=== PATIENT | male | born 1995 | race African-American/Black ===

== ENCOUNTER 2020-02-04 18:50 | Emergency (ER) | payer OTHER ==
[2020-02-04 19:15] VITALS: BP 123/79
--- NOTE | 2020-02-04 19:38 | ER Document Report ---
ED GI/ - General Chief Complaint: STD Exposure Stated Complaint: STD CHECK Time Seen by Provider: 02/04/20 19:36 Mode of Arrival: Ambulatory Information source: Patient Notes: 24-year-old male presented to ED for complaint of having sexual contact with a female who states that she was positive for chlamydia. He states he is not having any symptoms. He states he is supposed to go to [facility] tomorrow for basic training. He states he needs to get tested and treated tonight before he leaves. He is alert oriented respirations regular nonlabored speaking in full sentences. - HPI Patient complains to provider of: Other - No pain no discharge no discomfort states he has been in contact with somebody who had chlamydia Onset: Last week Quality of pain: No pain Severity in ED: None Pain Level: Denies Sexual history: Unprotected intercourse Associated symptoms: None Exacerbated by: Denies Relieved by: Denies Similar symptoms previously: No Recently seen / treated by doctor: No - Related Data Allergies/Adverse Reactions: No Known Allergies Allergy (Unverified 02/04/20 19:26) Past Medical History - General Information source: Patient - Social History Smoking Status: Former Smoker Frequency of alcohol use: None Drug Abuse: None Occupation: Active duty Family History: Reviewed & Not Pertinent Patient has suicidal ideation: No Patient has homicidal ideation: No - Past Medical History Cardiac Medical History: Reports: None Pulmonary Medical History: Reports: None EENT Medical History: Reports: None Neurological Medical History: Reports: None Endocrine Medical History: Reports: None Renal/ Medical History: Reports: None Malignancy Medical History: Reports None GI Medical History: Reports: None Musculoskeletal Medical History: Reports None Skin Medical History: Reports None Psychiatric Medical History: Reports: None Traumatic Medical History: Reports: None Infectious Medical History: Reports: None Surgical Hx: Negative Past Surgical History: Reports: None - Immunizations Immunizations up to date: Yes Hx Diphtheria, Pertussis, Tetanus Vaccination: Yes Review of Systems - Review of Systems Constitutional: No symptoms reported EENT: No symptoms reported Cardiovascular: No symptoms reported Respiratory: No symptoms reported Gastrointestinal: No symptoms reported Genitourinary: No symptoms reported Male Genitourinary: No symptoms reported, Other - Unprotected sex with a female who states she has chlamydia no symptoms Musculoskeletal: No symptoms reported Skin: No symptoms reported Hematologic/Lymphatic: No symptoms reported Neurological/Psychological: No symptoms reported -: Yes All other systems reviewed and negative Physical Exam - Vital signs Vitals: Temp Pulse Resp BP Pulse Ox 98.9 F 76 16 123/79 99 02/04/20 19:11 02/04/20 19:11 02/04/20 19:11 02/04/20 19:11 02/04/20 19:11 Interpretation: Normal - General General appearance: Appears well, Alert - HEENT Head: Normocephalic, Atraumatic Eyes: Normal Pupils: PERRL - Respiratory Respiratory status: No respiratory distress Chest status: Nontender Breath sounds: Normal Chest palpation: Normal - Cardiovascular Rhythm: Regular Heart sounds: Normal auscultation Murmur: No - Abdominal Inspection: Normal Distension: No distension Bowel sounds: Normal Tenderness: Nontender Organomegaly: No organomegaly - Back Back: Normal, Nontender - Extremities General upper extremity: Normal inspection, Nontender, Normal color, Normal ROM, Normal temperature General lower extremity: Normal inspection, Nontender, Normal color, Normal ROM, Normal temperature, Normal weight bearing. No: Osmel's sign - Neurological Neuro grossly intact: Yes Cognition: Normal Orientation: AAOx4 [place] Coma Scale Eye Opening: Spontaneous [place] Coma Scale Verbal: Oriented [place] Coma Scale Motor: Obeys Commands [place] Coma Scale Total: 15 Speech: Normal Motor strength normal: LUE, RUE, LLE, RLE Sensory: Normal - Psychological Associated symptoms: Normal affect, Normal mood - Skin Skin Temperature: Warm Skin Moisture: Dry Skin Color: Normal Course - Re-evaluation Re-evalutation: 02/04/20 20:26 Patient was seen today for unprotected sex with a female that stated she had chlamydia. He states he has to go to basic training [facility] tomorrow. He states he needs to be treated for chlamydia before he goes to [facility]. He is alert oriented respirations regular nonlabored speaking in full sentences. He has no symptoms at this time. Gonorrhea and chlamydia test has been sent. He will be treated before he is discharged home with a azithromycin and Rocephin. - Vital Signs Vital signs: Temp Pulse Resp BP Pulse Ox 98.9 F 76 16 123/79 99 02/04/20 19:28 02/04/20 19:11 02/04/20 19:11 02/04/20 19:11 02/04/20 19:11 - Laboratory Laboratory results interpreted by me: 02/04/20 19:50 Urine Protein 30 H Discharge - Discharge Clinical Impression: At risk for sexually transmitted disease due to unprotected sex, States his partner had chlamydia Condition: Stable Disposition: HOME, SELF-CARE Additional Instructions: You state you had unprotected sex with a female who tested positive for chlamydia. You state you do not have any symptoms at this time you do not have any pain burning or discharge. You are being treated prophylactically for chlamydia and gonorrhea. You will be given a shot of Rocephin and for azithromycin. Do not have any unprotected sex with anybody for 10 days. The results of these will be come back in a couple hours. You can call to the ER and ask for your results in a couple hours if you would like. You have been treated. Rocephin You have been given an injection of an antibiotic called Rocephin (ceftriaxone). Sometimes the injection must be combined with antibiotic pills. For some infections, such as an uncomplicated ear infection, Rocephin provides all the antibiotic that's needed. The antibiotic will be in your body for about two days. For serious infections, we usually repeat doses of Rocephin daily. Side effects are very unusual following a shot. Women may develop vaginal yeast infections, and babies can get yeast (thrush) in the mouth following the use of antibiotics. Contact your physician if you have symptoms with this medication. Allergy to this antibiotic can result in hives, wheezing, faintness, or itching. If symptoms of allergy occur, call the doctor at once. AZITHROMYCIN: Azithromycin (Zithromax) is a broad spectrum antibiotic in the same class as erythromycin. It can treat a variety of bacterial infections, but is most frequently used for respiratory infections. Azithromycin is extremely long-lasting. It accumulates in body tissues and continues to kill bacteria for many days. In order to improve absorption, Azithromycin should be taken at least one h our before or two hours after a meal. It does not have the same strong tendency to upset the stomach as erythromycin and is usually very well tolerated. Patients who have had a rash or other true allergic reactions to erythromycin should not take this medication. Call if you develop gastrointestinal distress, severe diarrhea, rash, hives, itching, or shortness of breath. Please follow-up with your doctor for further STD sting if you have any symptoms develop. FOLLOW-UP CARE: If you have been referred to a physician for follow-up care, call the physicians office for an appointment as you were instructed or within the next two days. If you experience worsening or a significant change in your symptoms, notify the physician immediately or return to the Emergency Department at any time for re-evaluation.
[2020-02-04] MEDS ORDERED: LIDOCAINE 1% INJ-PF (10 MG/ML) 30 ML SDV INJ ONE (19:46)
[2020-02-04] MEDS ORDERED: AZITHROMYCIN 250 MG TABLET PO ONE (19:46)
[2020-02-04] MEDS ORDERED: CEFTRIAXONE INJ 250 MG VIAL IM ONE (19:46)
[2020-02-04 20:34] LABS: APPEARANCE,URINE SLIGHTLY-CLOUDY; BILIRUBIN,URINE NEGATIVE (NEGATIVE); COLOR,URINE YELLOW; GLUCOSE, URINE NEGATIVE (NEGATIVE); KETONES,URINE NEGATIVE (NEGATIVE); PROTEIN,URINE 30 mg/dL (NEGATIVE); URINE SPECIFIC GRAVITY 1.028; UROBILINOGEN,URINE NEGATIVE mg/dL (<2.0)
[2020-02-04 21:57] LABS: CHLAM PCR NOT DETECTED (NOT DETECT)
== END 2020-02-04 21:27 | disposition home or self-care (01) ==
LOC: ER 18:50
DX: Z20.2 Contact with and (suspected) exposure to infections with a predominantly sexual mode of transmission (principal); Z87.891 Personal history of nicotine dependence
CPT/HCPCS: 99283; 96372; 81001; 87491; 87591; J3490; J0696

== ENCOUNTER 2020-04-12 17:12 | Emergency (ER) | payer OTHER ==
[2020-04-12 17:18] VITALS: BP 139/71
[2020-04-12] MEDS ORDERED: CEFTRIAXONE INJ 250 MG VIAL IM ONE (17:28)
[2020-04-12] MEDS ORDERED: LIDOCAINE 1% INJ (10 MG/ML) 10 ML MDV INJ ONE (17:28)
[2020-04-12] MEDS ORDERED: AZITHROMYCIN 250 MG TABLET PO ONE (17:28)
--- NOTE | 2020-04-12 17:31 | ER Document Report ---
HPI - HPI Patient complains to provider of: Penile discharge Time Seen by Provider: 04/12/20 17:24 Onset: Other - 3 Days Onset/Duration: Gradual Pain Level: Denies Context: Patient presents reporting penile discharge for the past 3 days. Patient is concerned about exposure to chlamydia and would like to be tested and treated. Patient denies any abdominal pain or back pain. No fever. Patient denies any abnormal skin lesions. Associated Symptoms: denies: Fever, Nausea, Vomiting Exacerbated by: Denies Relieved by: Denies Similar symptoms previously: Yes Recently seen / treated by doctor: No - ROS ROS below otherwise negative: Yes Systems Reviewed and Negative: Yes All other systems reviewed and negative - CONSTITUTIONAL Constitutional: DENIES: Fever, Chills - GASTROINTESTINAL Gastrointestinal: DENIES: Abdominal Pain, Nausea, Patient vomiting - URINARY Urinary: DENIES: Dysuria - REPRODUCTIVE Notes: Penile discharge - MUSCULOSKELETAL Musculoskeletal: DENIES: Back Pain - DERM Skin Color: Normal Skin Problems: None Past Medical History - General Information source: Patient - Social History Smoking Status: Never Smoker Frequency of alcohol use: Occasional Drug Abuse: None Occupation: Active duty Family History: Reviewed & Not Pertinent - Medical History Medical History: Negative Surgical Hx: Negative - Immunizations Immunizations up to date: Yes Hx Diphtheria, Pertussis, Tetanus Vaccination: Yes Vertical Provider Document - CONSTITUTIONAL Agree With Documented VS: Yes Exam Limitations: No Limitations General Appearance: WD/WN, No Apparent Distress - HEENT HEENT: Atraumatic, Normocephalic - NECK Neck: Normal Inspection, Supple - RESPIRATORY Respiratory: Breath Sounds Normal, No Respiratory Distress - CARDIOVASCULAR Cardiovascular: Regular Rate, Regular Rhythm - GI/ABDOMEN Gastrointestinal: Abdomen Soft - REPRODUCTIVE Notes: Patient deferred - BACK Back: Normal Inspection. negative: CVA Tenderness-Right, CVA Tenderness-Left - MUSCULOSKELETAL/EXTREMETIES Musculoskeletal/Extremeties: MAEW - NEURO Level of Consciousness: Awake, Alert, Appropriate Motor/Sensory: No Motor Deficit - DERM Integumentary: Warm, Dry, No Rash Course - Vital Signs Vital signs: Temp Pulse Resp BP Pulse Ox 98.7 F 81 16 139/71 H 98 04/12/20 17:17 04/12/20 17:17 04/12/20 17:17 04/12/20 17:17 04/12/20 17:17 Discharge - Discharge Clinical Impression: Concern about STD in male without diagnosis Condition: Stable Disposition: HOME, SELF-CARE Instructions: Azithromycin ([facility]), Rocephin ([facility]) Additional Instructions: Return immediately for any new or worsening symptoms Followup with your primary care provider, call tomorrow to make a followup appointment Safe sex practices Referrals: [facility] [Provider Group] - Follow up as needed
[2020-04-12 19:24] LABS: CHLAM PCR NOT DETECTED (NOT DETECT)
== END 2020-04-12 17:51 | disposition home or self-care (01) ==
LOC: ER 17:12
DX: R36.9 Urethral discharge, unspecified (principal); Z20.2 Contact with and (suspected) exposure to infections with a predominantly sexual mode of transmission
CPT/HCPCS: 99283; 96372; 87491; 87591; J0696